=== PATIENT | female | born 1985 | race Caucasian/White ===

== ENCOUNTER 2018-04-24 17:54 | Emergency (ER) | payer OTHER ==
[~2018-04-24] VITALS: Ht 170.2 cm; Wt 97.5 kg
[2018-04-24] MEDS ORDERED: TOPROL XL50 M1 PO (18:04)
[2018-04-24] MEDS ORDERED: MAGNESIUM400 M1 PO (18:04)
== END 2018-04-24 19:08 | disposition home or self-care (01) ==
LOC: ER 17:54
DX: S99.811A Other specified injuries of right ankle, initial encounter (principal); W18.39XA Other fall on same level, initial encounter; Y93.89 Activity, other specified; Y92.098 Other place in other non-institutional residence as the place of occurrence of the external cause; Y99.8 Other external cause status